=== PATIENT | female | born 1950 | race Caucasian/White ===

== ENCOUNTER 2019-04-04 08:54 | Day surgery (SDC) | payer OTHER, MEDICARE ==
[2019-04-02 17:16] VITALS: BMI 29.7
[2019-04-04] MEDS ORDERED: ROPIVACAINE HCL 0.5% 30ML VIAL ONE (10:50)
[2019-04-04] MEDS ORDERED: DEXAMETHASONE SOD PHOSPHATE/PF 10 MG/ML SDV ONE (10:50)
[2019-04-04] MEDS ORDERED: MIDAZOLAM HCL 2 MG/2 ML SINGLE DOSE VIAL ONE (10:51)
[2019-04-04] MEDS ORDERED: PROPOFOL 20 ML ONE ×2 (12:18→12:37)
[2019-04-04] MEDS ORDERED: ceFAZolin SODIUM 1 GM VIAL ONE (12:27)
[2019-04-04] MEDS ORDERED: ONDANSETRON 4 MG/2 ML VIAL ONE (12:36)
[2019-04-04] MEDS ORDERED: DEXAMETHASONE SOD PHOSPHATE 4 MG/1 ML VIAL ONE (12:36)
[2019-04-04] MEDS ORDERED: GLYCOPYRROLATE 0.2 MG/1 ML VIAL ONE (12:37)
[2019-04-04] MEDS ORDERED: oxyCODONE HCL 5 MG TABLET PO PRN (13:20)
[2019-04-04] MEDS ORDERED: ONDANSETRON 4 MG/2 ML VIAL IVPUSH PRN (13:20)
[2019-04-04] MEDS ORDERED: LACTATED RINGERS SOLUTION 1,000 ML IV SCH (13:30)
--- NOTE | 2019-04-04 14:11 | OP ---
DATE OF OPERATION: 04/04/2019 PREOPERATIVE DIAGNOSIS: Torn rotator cuff. POSTOPERATIVE DIAGNOSES: 1. Frozen left shoulder with adhesive capsulitis. 2. Extensive joint debris. 3. Tearing of the rotator cuff. 4. Glenoid labral tear. 5. Impingement from the acromion. 6. Impingement from the lateral clavicle. PROCEDURE PERFORMED: 1. Manipulation of left shoulder under anesthesia with lysis and resection of adhesions. 2. Extensive joint debridement. 3. Debridement of partial-thickness rotator cuff tear. 4. Partial glenoid labrum resection. 5. Acromioplasty. 6. Lateral clavicular resection, a Josesito procedure. SURGEON: Jd Vela MD LEGAL ACTIVITY ADJUDICATOR: EMPERATRIZ Wells ANESTHESIA: Nolan Medina MD, regional anesthesia with an interscalene block with augmentation with medications. DESCRIPTION OF PROCEDURE: The procedure consisted of the patient being brought into the operating room and gently transferred from the stretcher to the OR table. All bony prominences were well padded. A patient pneumatic rest was used to supporting the patient with a pillow below the legs and a pillow between the legs to protect the neurovascular structures. An axillary roll was placed below the lower arm to protect the lower shoulder. The face and neck were protected throughout the procedure by the anesthesiologist. The patient had been placed in the left side lateral decubitus position. The patient was given intravenous antibiotics to minimize risk for infection. A complete risk, benefit, alternative discussion was conducted with the patient, which was inclusive of, but not limited to, infection, bleeding, , paralysis, increased pain, need for repeat surgery. Patient asked questions, understood the procedure, and desired to proceed with the surgical treatment. Following the sterile preparation, draping, and positioning of the patient, an appropriate time-out was conducted, which was inclusive of, but not limited to, type of surgery, site of surgery, anesthesiologist, and surgeon. Following this and sterile preparation and draping of the left shoulder, gentle traction was applied across the shoulder joint using a traction device of approximately 8 pounds. The posterior, lateral, and anterior portals were used to introduce the arthroscope and arthroscopic instruments. The anterior portal was fabricated using the inside-out method over a transfer ying to protect the anterior neurovascular structures. The glenohumeral joint was evaluated. A gentle manipulation of the left shoulder for the frozen shoulder was performed. Initial range of movement was only 90 degrees of abduction with 90 degrees of flexion, 5 degrees of extension. Internal rotation was 60 degrees, external rotation was 5 degrees. Following the gentle manipulation under anesthesia, abduction was 160 degrees, flexion was 160 degrees, extension was 40 degrees, internal rotation was 90 degrees, external rotation was 25 degrees. Once the arthroscopic instruments were used to evaluate the joint, there were noted to be adhesions within the joint. These were lysed and resected. There was noted to be extensive joint debris, and extensive joint debridement was performed. Examination of the joint demonstrated the integrity of the biceps tendon and the middle glenohumeral ligament. Anterior and posterior recesses were without plica nor loose body. The rotator cuff on the articular side was noted to have a tear, which was probed and found to be partial thickness, and this was debrided using shaver and radiofrequency wand. There was noted to be tearing of the glenoid labrum, and this was resected using shaver and radiofrequency wand. The shoulder joint was copiously irrigated, and our attention was turned to the subacromial space. There was noted to be inflamed bursal tissue, and extensive bursectomy was performed. Rotator cuff along the bursal side was found to be intact. The acromion was noted to be creating impingement, and this was debrided with a shaver and radiofrequency wand. A high-speed bur was used to resect a wedge of bone thick anteriorly then posteriorly. The lateral clavicle was also creating impingement. This was debrided, and a high-speed burring shaver was used to resect lateral clavicle including articular portion, and a Josesito procedure was performed. The shoulder joint was then copiously irrigated with sterile saline irrigant. The wounds were closed with 4-0 undyed Vicryl followed by Steri-Strips, Xeroform, 4 x 4's, Combine, Elastoplast, and a shoulder immobilizer. The patient was then gently awoken from anesthesia and gently transferred from the operating room table to the stretcher and then to the recovery room in excellent condition. There were no intraoperative complications. Abdulkadir [id number]
[2019-04-04 15:12] VITALS: BP 128/74; PULSE 74; TEMP 98.1
== END 2019-04-04 15:16 | disposition home or self-care (01) ==
LOC: FASU 08:54
PROVIDERS: ATTEND Orthopaedic Surgery
PROC: 0PBB4ZZ Excision of Left Clavicle, Percutaneous Endoscopic Approach (ICD-10-PCS; 2019-04-04)
PROC: 0RBK4ZZ Excision of Left Shoulder Joint, Percutaneous Endoscopic Approach (ICD-10-PCS; 2019-04-04)
PROC: 0LQ24ZZ Repair Left Shoulder Tendon, Percutaneous Endoscopic Approach (ICD-10-PCS; principal; 2019-04-04 12:40)
DX: M75.102 Unspecified rotator cuff tear or rupture of left shoulder, not specified as traumatic (principal); M75.02 Adhesive capsulitis of left shoulder; M25.812 Other specified joint disorders, left shoulder; M24.112 Other articular cartilage disorders, left shoulder; M75.42 Impingement syndrome of left shoulder
CPT/HCPCS: 94760